=== PATIENT | female | born 1965 | race Caucasian/White ===

== ENCOUNTER 2018-10-01 12:54 | Emergency (ER) | payer OTHER ==
[2018-10-01 13:11] VITALS: BP 151/83; PULSE 109; TEMP 99.8; BMI 38.2
--- NOTE | 2018-10-01 13:42 | PDOC ---
History of Present Illness - General Chief Complaint: Respiratory Stated Complaint: SORE THROAT, EYE REDNESS, COUGHING Time Seen by Provider: 10/01/18 13:10 History Source: Patient Exam Limitations: No Limitations - History of Present Illness Initial Comments: 10/01/18 14:29 Patient is a 52-year-old female who presents to the emergency department today for 5 days of sore throat and cough. Patient also reports that she's had redness with yellow discharge to both of her eyes for 2 days. She states she will up this morning and her eyes are completely crusted over. Also admits to productive cough. Denies fevers, chills, shortness of breath, difficulty breathing, chest pain, nausea, vomiting and diarrhea. Past History - Travel Traveled outside of the country in the last 30 days: No Close contact w/someone who was outside of country & ill: No - Past Medical History Allergies/Adverse Reactions: Allergies Allergy/AdvReac Type Severity Reaction Status Date / Time No Known Drug Allergies Allergy Verified 10/01/18 13:05 seasonal Allergy Intermediate Cough Uncoded 10/01/18 13:05 Home Medications: Ambulatory Orders Amlodipine Besylate [Norvasc -] 5 mg PO DAILY 01/21/14 Ciprofloxacin [Cipro (Restricted To Id) -] 250 mg PO BID #14 tablet 01/21/14 Furosemide [Lasix -] 20 mg PO DAILY #3 tablet 01/21/14 Levothyroxine [Synthroid -] 50 mcg PO DAILY 01/21/14 Metoprolol Succinate [Toprol XL -] 50 mg PO DAILY 01/21/14 Amoxicillin - [Amoxicillin 500mg Capsule -] 500 mg PO BID #20 capsule 10/01/18 Ofloxacin 0.3% Ophth Soln [Ocuflox -] 1 drop OP Q4H #100 drops 10/01/18 Anemia: No Asthma: No (seasonal allergies) Cancer: No Cardiac Disorders: No CVA: No COPD: No CHF: No Dementia: No Diabetes: No GI Disorders: No Disorders: No HTN: Yes Hypercholesterolemia: No Liver Disease: No Seizures: No Thyroid Disease: Yes (HYPO) - Surgical History Abdominal Surgery: No Appendectomy: No Cardiac Surgery: No Cholecystectomy: No Lung Surgery: No Neurologic Surgery: No Orthopedic Surgery: No - Suicide/Smoking/Psychosocial Hx Smoking History: Never smoked Have you smoked in the past 12 months: No Hx Alcohol Use: No Drug/Substance Use Hx: No Substance Use Type: None Hx Substance Use Treatment: No Review of Systems - Review of Systems Able to Perform ROS?: Yes Comments:: 10/01/18 14:22 CONSTITUTIONAL: Absent: fever, chills, diaphoresis, generalized weakness, malaise, loss of appetite HEENT: Present: red eyes with discharge, sore throat Absent: throat swelling, difficulty swallowing, mouth swelling, ear pain, eye pain, visual Changes CARDIOVASCULAR: Absent: chest pain, loss of consciousness, palpitations, irregular heart rate, peripheral edema RESPIRATORY: Present: cough Absent: shortness of breath, dyspnea with exertion, orthopnea, wheezing, stridor, hemoptysis GASTROINTESTINAL: Absent: abdominal pain, abdominal distension, nausea, vomiting, diarrhea, constipation, melena, hematochezia GENITOURINARY: Absent: dysuria, frequency, urgency, hesitancy, hematuria, flank pain, genital pain MUSCULOSKELETAL: Absent: myalgia, arthralgia, joint swelling SKIN: Absent: rash, itching, pallor HEMATOLOGIC/IMMUNOLOGIC: Absent: easy bleeding, easy bruising, lymphadenopathy, frequent infections ENDOCRINE: Absent: unexplained weight gain, unexplained weight loss, heat intolerance, cold intolerance NEUROLOGIC: Absent: headache, focal weakness or paresthesias, dizziness, unsteady gait, seizure, mental status changes, bladder or bowel incontinence PSYCHIATRIC: Absent: anxiety, depression, suicidal or homicidal ideation, hallucinations. Is the patient limited Divehi proficient: No *Physical Exam - Vital Signs Last Vital Signs Temp Pulse Resp BP Pulse Ox 99.8 F H 109 H 17 151/83 96 10/01/18 13:06 10/01/18 13:06 10/01/18 13:06 10/01/18 13:06 10/01/18 13:06 - Physical Exam Comments: 10/01/18 14:23 GENERAL: Well developed, well nourished. Awake and alert. No acute distress. HEENT: Normocephalic, atraumatic. PERRLA, EOMI. No conjunctival pallor. Conjunctiva is erythematous b/l with yellow discharge. Sclera are non-icteric. Moist mucous membranes. Oropharynx is erythematous with 2+ tonsils. L TM is erythematous and bulging. NECK: Supple. Full ROM. No JVD. Carotid pulses 2+ and symmetric, without bruits. No thyromegaly. No lymphadenopathy. CARDIOVASCULAR: Regular rate and rhythm. No murmurs, rubs, or gallops. Distal pulses are 2+ and symmetric. PULMONARY: No evidence of respiratory distress. Lungs clear to auscultation bilaterally. No wheezing, rales or rhonchi. ABDOMINAL: Soft. Non-tender. Non-distended. No rebound or guarding. No organomegaly. Normoactive bowel sounds. MUSCULOSKELETAL Normal range of motion at all joints. No bony deformities or tenderness. No CVA tenderness. EXTREMITIES: No cyanosis. No clubbing. No edema. No calf tenderness. SKIN: Warm and dry. Normal capillary refill. No rashes. No jaundice. NEUROLOGICAL: Alert, awake, appropriate. Cranial nerves 2-12 intact. No deficits to light touch and temperature in face, upper extremities and lower extremities. No motor deficits in the in face, upper extremities and lower extremities. Normoreflexic in the upper and lower extremities. Normal speech. Toes are down- going bilaterally. Gait is normal without ataxia. PSYCHIATRIC: Cooperative. Good eye contact. Appropriate mood and affect. Moderate Sedation - Procedure Monitoring Vital Signs: Procedure Monitoring Vital Signs Temperature 99.8 F H 10/01/18 13:06 Pulse Rate 109 H 10/01/18 13:06 Respiratory Rate 17 10/01/18 13:06 Blood Pressure 151/83 10/01/18 13:06 O2 Sat by Pulse Oximetry (%) 96 10/01/18 13:06 Medical Decision Making - Medical Decision Making 10/01/18 14:33 Pt is a 52 y/o F who presents to the ED with 5 days of upper respiratory symptoms Left TM is bulging and erythematous. We'll treat for otitis media this time. Patient also with significantly red tonsils. The amoxicillin for her AOM will cover possible strep throat. Given patient with OEM. We will also treat the conjunctivitis is bacterial. Ofloxacin drops prescribed. Patient patient follow up with her primary care doctor this week. Discharge home I discussed the physical exam findings, ancillary test results and final diagnoses with the patient. I answered all of the patient's questions. The patient was satisfied with the care received and felt comfortable with the discharge plan and treatment plan. The Patient agrees to follow up with the primary care physician/specialist within 24-72 hours. Return precautions were given. *DC/Admit/Observation/Transfer Diagnosis at time of Disposition: Conjunctivitis Qualifiers: Conjunctivitis type: acute Acute conjunctivitis type: unspecified Laterality: bilateral Qualified Code(s): H10.33 - Unspecified acute conjunctivitis, bilateral Otitis media Qualifiers: Otitis media type: suppurative Chronicity: acute Laterality: left Recurrence: non-recurrent Spontaneous tympanic membrane rupture: without spontaneous rupture Qualified Code(s): H66.002 - Acute suppurative otitis media without spontaneous rupture of ear drum, left ear - Discharge Dispostion Disposition: HOME Condition at time of disposition: Stable Decision to Admit order: No - Prescriptions Prescriptions: Amoxicillin - [Amoxicillin 500mg Capsule -] 500 mg PO BID #20 capsule Ofloxacin 0.3% Ophth Soln [Ocuflox -] 1 drop OP Q4H #100 drops - Referrals Referrals: Jaime Sanderson MD [Primary Care Provider] - 10/05/18 - Patient Instructions Printed Discharge Instructions: Middle Ear Infection, DI for Conjunctivitis Additional Instructions: You have conjunctivitis and an ear infection. Please use the ofloxacin drops every 4 hours for one week to help with the redness and discharge. Please take the amoxicillin 500 mg twice a day for 10 days for the left ear infection. Eat before taking the medication. Do not put anything in the ear. You may take Tylenol as needed for pain. Follow the dosing instruction on the bottle. you may also continue taking the NyQuil. Follow february instructions. Follow-up with Dr. Ferro on Wednesday. Return to the emergency department for any new or worsening symptoms. - Post Discharge Activity Forms/Work/School Notes: Back to Work
== END 2018-10-01 13:53 | disposition home or self-care (01) ==
LOC: JER 12:54 → JERFT 12:54
DX: H66.002 Acute suppurative otitis media without spontaneous rupture of ear drum, left ear (principal); H10.33 Unspecified acute conjunctivitis, bilateral; I10 Essential (primary) hypertension; E03.9 Hypothyroidism, unspecified; J30.2 Other seasonal allergic rhinitis
CPT/HCPCS: 99281-25